=== PATIENT | female | born 1990 | race Caucasian/White ===

== ENCOUNTER 2016-10-02 13:54 | Outpatient (CLI) | payer BC ==
[~2016-10-02] VITALS: Ht 152.4 cm; Wt 85.9 kg
[2016-10-02 13:58] VITALS: BP 123/62; PULSE 72; RESP 16; Ht 152.4 cm; Wt 85.9 kg
[2016-10-02] MEDS ORDERED: NITR-58 PO (14:08)
[2016-10-02] MEDS ORDERED: NPH,100I5 SQ (14:08)
[2016-10-02] MEDS ORDERED: INSU100C SQ (14:08)
[2016-10-02] MEDS ORDERED: NIFE10CA19 PO (14:08)
--- NOTE | 2016-10-02 14:55 | TRIAGE ---
OB Triage Datetime Report Generated by CPN: 10/02/2016 14:55 Datetime: 10/02/2016 14:28 Labor Evaluation Frequency: x2 Monitor Mode: External Duration (sec)2399: 50-90 Quality: Mild Pattern: Normal: <= 5 Contractions in 10 Minutes Resting Tone [place]: Relaxed Heart Rate FHR Baseline Rate: 135 Monitor Mode: External US Variability: Moderate 6-25 bpm Accelerations: 15X15 Decelerations: None Category: Category I Pain Assessment Pain Presence: None/Denies Pain Type: N/A Datetime: 10/02/2016 14:10 Assessment Type: Triage Maternal Assessment Level of Consciousness: Fully Conscious DTR's/Clonus: DTRs 2+; No Clonus Headache: Denies Blurred Vision: No Respiratory Effort: Unlabored; Regular Rhythm; Equal Expansion Breath Sounds, Left: Clear and Equal Breath Sounds, Right: Clear and Equal Nausea/Vomiting: Denies RUQ Epigastric Pain: Denies Facial Edema: None Fall Risk Assessment History of Falling: (0) No Secondary Diagnosis: (0) No Ambulatory Aid: (0) Bedrest/Nurse Assist IV Therapy: (0) No Gait: (0) Normal/Bedrest/Immobile Mental Status: (0) Oriented to Own Ability Fall Score: 0 Fall Risk Score Definition: No Risk: No action required Datetime: 10/02/2016 14:09 Time of Arrival: 10/02/2016 13:50 EGA: 33.4 Arrived By: Wheelchair Arrived From: Other Unit in Hospital Chief Complaint: pt. came to [facility] triage from [facility] c/o decreased fm since 0800 this am Movement: Decreased Contractions: Occasional Patient Complaints: Other Additional Patient Complaints: a2dm on insulin Time Provider Notified: 10/02/2016 14:40 Provider Notified: Initial Plan: jared figueroa
--- NOTE | 2016-10-02 15:01 | RADRPT ---
PROCEDURE: Biophysical profile CLINICAL INDICATION: distress. Decreased movements. TECHNIQUE: Color and awad-scale ultrasound images of an intrauterine gestation were obtained. COMPARISON: None FINDINGS: A single live intrauterine gestation is identified in cephalic position with an estimated hear t rate of 143 beats per minute. The placenta is located posteriorly. The cervix is obscured by hea d shadows. No evidence of abruption identified. KILEY is 14.8 cm. movement 2/2. tone 2/2. breathing movement 2/2. Qualitative AFV 2/2 Total biophysical profile 11/17 IMPRESSION: 11/17 biophysical profile. RPTAT: AA .Rick Ca MD, Date Time Electronically viewed and signed by .Rick Ca MD, on 10/02/2016 15:01 .P/
--- NOTE | 2016-10-02 15:12 | PN ---
Triage Information Date/Time Weeks of Gestation 33 4/7 weeks : 1 Para: 0 Diabetes: gestational Diabetes management: insulin controlled Objective Vital Signs Date Time Temp Pulse Resp B/P Pulse Ox O2 Delivery O2 Flow Rate FiO2 10/02/16 13:58 98.0 72 16 123/62 Heart Rate Comments reactive Contractions: None Results/Medications Imaging Results BPP 8/8, KILEY 14.8 Assessment/Plan at 33 4/7 weeks with dfm -discussed fkcs -discharge home -f/u with OB SHAKILA GUTIERREZ Oct 02, 2016 15:12
== END 2016-10-02 15:00 | disposition home or self-care (01) ==
LOC: OBT 13:54 → L-D 13:55 → OBT 15:00
PROVIDERS: ATTEND Obstetrics & Gynecology
DX: O24.414 Gestational diabetes mellitus in pregnancy, insulin controlled (principal); Z3A.33 33 weeks gestation of pregnancy
CPT/HCPCS: 76818; Z7500; G0463